=== PATIENT | male | born 1970 | race Caucasian/White ===

== ENCOUNTER 2017-01-21 11:28 | Emergency (ER) | payer MEDICARE ==
[~2017-01-21 11:28] MED LIST: LATANOPROST2.5 ML OU; METFORMIN HCL500 M1 PO; OMEPRAZOLE20 M1 PO
== END 2017-01-21 12:26 | disposition home or self-care (01) ==
LOC: CED 11:28 → CFTX 11:28
DX: M77.12 Lateral epicondylitis, left elbow (principal); E11.9 Type 2 diabetes mellitus without complications; K21.9 Gastro-esophageal reflux disease without esophagitis; F17.210 Nicotine dependence, cigarettes, uncomplicated; Z86.19 Personal history of other infectious and parasitic diseases
CPT/HCPCS: 99282